=== PATIENT | female | born 1985 | race Caucasian/White ===

== ENCOUNTER 2017-12-14 07:07 | Day surgery (SDC) | payer OTHER ==
[~2017-12-14 07:07] MED LIST: ACETAMINOPHEN 1000 MG/100 ML IVPB; CEFAZOLIN 1 GM INJ; CEFAZOLIN 2 GM/50 ML (PMX) 50 ML IVPB; LIDOCAINE 100 MG SYRINGE; SOD CHLORIDE 0.9% 1,000 ML IV
[2017-12-14] MEDS ORDERED: BUPIVACAINE 0.25% (MPF) 30 ML INJ (08:46)
[2017-12-14] MEDS ORDERED: SUCCINYLCHOLINE CHLORIDE 100 MG/5 ML SYG IV (09:03)
[2017-12-14] MEDS ORDERED: ROCURONIUM 50 MG INJ (09:03)
[2017-12-14] MEDS ORDERED: FENTAnyl 50 MCG/ML VIAL ×2 (09:03→10:32)
[2017-12-14] MEDS ORDERED: PROPOFOL 20 ML (09:03)
[2017-12-14] MEDS ORDERED: METOCLOPRAMIDE 10 MG INJ (09:04)
[2017-12-14] MEDS ORDERED: NEOSTIGMINE 3 MG/3 ML SYRINGE (09:04)
[2017-12-14] MEDS ORDERED: GLYCOPYRROLATE 0.4 MG INJ (09:04)
[2017-12-14] MEDS ORDERED: MIDAZOLAM 1 MG/ML 2 ML INJ (09:06)
[2017-12-14] MEDS: BUPIVACAINE 0.25% (MPF) 30 ML INJ INJ (09:42)
[2017-12-14] MEDS ORDERED: MEPERIDINE 25 MG INJ IV (10:30)
[2017-12-14] MEDS ORDERED: FENTAnyl 50 MCG/ML VIAL IV (10:30)
[2017-12-14] MEDS ORDERED: ONDANSETRON 4 MG INJ IV (10:30)
[2017-12-14] MEDS ORDERED: hydrALAzine 20 MG INJ IV (10:30)
[2017-12-14] MEDS ORDERED: METOCLOPRAMIDE 10 MG INJ IV (10:30)
[2017-12-14] MEDS ORDERED: DIPHENHYDRAMINE 50 MG INJ IV (10:30)
[2017-12-14] MEDS ORDERED: EPHEDrine SULFATE 50 MG/5 ML SYG IV (10:30)
[2017-12-14] MEDS ORDERED: LABETALOL HCL 20MG INJ IV (10:30)
[2017-12-14] MEDS ORDERED: HYDROmorphONE (0.2 MG/ML) 10ML SYG IV ×3 (10:30)
[2017-12-14] MEDS ORDERED: KETOROLAC 15 MG INJ IV (10:30)
[2017-12-14] MEDS: FENTAnyl 50 MCG/ML VIAL IV (10:41)
[2017-12-14] MEDS: HYDROCODONE/APAP (5/325) TAB PO (10:53)
== END 2017-12-14 12:35 | disposition home or self-care (01) ==
LOC: SDS 07:07
DX: K80.20 Calculus of gallbladder without cholecystitis without obstruction (principal); E11.9 Type 2 diabetes mellitus without complications
CPT/HCPCS: 47562; 82962; 84703; 88304